=== PATIENT | male | born 1995 | race Two or more races ===

== ENCOUNTER 2023-04-21 18:04 | Emergency (ER) | payer BC, MEDICARE ==
[2023-04-21 19:34] LABS: BASOPHILS ABSOLUTE AUTO 0.09 K/mm3 (0.01-0.08); EOSINOPHILS ABSOLUTE AUTO 0.29 K/mm3 (0.04-0.54); EOSINOPHILS PERCENT AUTO 3.2 (0.8-7.0); HEMATOCRIT 21.3 % (40.1-51.0); IMMATURE GRAN ABSOLUTE AUTO 0.04 K/mm3 (0.00-0.10); IMMATURE GRAN PERCENT AUTO 0.4 % (<=1.0); LYMPHOCYTES ABSOLUTE AUTO 0.56 K/mm3 (1.32-3.57); LYMPHOCYTES PERCENT AUTO 6.1 % (21.8-53.1); MEAN CORPUSCULAR HEMOGLOBIN 27.5 pg (25.7-32.2); MEAN CORPUSCULAR HGB CONC 31.9 g/dl (32.2-35.5); MEAN CORPUSCULAR VOLUME 86.2 fl (79.0-92.2); MEAN PLATELET VOLUME 9.3 fl (9.4-12.3); MONOCYTES ABSOLUTE AUTO 0.69 K/mm3 (0.30-0.82); MONOCYTES PERCENT AUTO 7.6 % (5.3-12.2); NEUTROPHILS ABSOLUTE AUTO 7.45 K/mm3 (1.78-5.38); NEUTROPHILS PERCENT AUTO 81.7 % (34.0-67.9); PLATELET COUNT,PLT 286 K/mm3 (163-337); RED BLOOD CELL COUNT 2.47 M/mm3 (4.63-6.08); WHITE BLOOD CELL COUNT,WBC 9.12 K/mm3 (4.23-9.07)
[2023-04-21 19:42] LABS: APPEARANCE,URINE CLEAR (Clear); BILIRUBIN,URINE NEGATIVE (Negative); COLOR,URINE LIGHT YELLOW (Yellow); GLUCOSE,URINE NEGATIVE (Negative); KETONES,URINE NEGATIVE (Negative); LEUKOCYTE ESTERASE,URINE NEGATIVE (Negative); NITRITE,URINE NEGATIVE (Negative); OCCULT BLOOD,URINE 1+ (Negative); PROTEIN,URINE 3+ (Negative); UROBILINOGEN,URINE 0.2 (0.2-1.0)
[2023-04-21 19:43] LABS: A/G RATIO 0.9 (1-2); ALBUMIN 3.7 g/dl (3.4-5.0); ANION GAP 25.6 (5-15); BILIRUBIN TOTAL 0.3 mg/dL (0.2-1.0); BUN/CREATININE RATIO 8.8 (14-18); CALCIUM 9.1 mg/dL (8.5-10.1); CREATININE 11.8 mg/dL (0.7-1.3); EST CRCL DRUG DOSING (CG) 8.34 mL/min; POTASSIUM,K 4.6 mEq/L (3.5-5.1); PROTEIN TOTAL,TP 7.9 g/dl (6.4-8.2)
[2023-04-21 19:49] LABS: RBC,URINE 0-5 /hpf (0-5); SQUAMOUS EPITHELIAL CELLS,UR 0-5 /hpf (0-5); WBC,URINE 0-5 /hpf (0-5)
[2023-04-21 19:50] LABS: BACTERIA,URINE RARE /hpf (FEW); MUCUS,URINE NOT SEEN /hpf (FEW)
[2023-04-21 19:54] LABS: HEMOGLOBIN 6.8 gm/dl (13.7-17.5)
== END 2023-04-22 01:20 ==
LOC: JD.ED 18:04
DX: N17.9 Acute kidney failure, unspecified (principal); Z99.2 Dependence on renal dialysis
CPT/HCPCS: 36415; 80053; 81001; 85025; 99284; 99285